=== PATIENT | male | born 1955 | race Two or more races ===

== ENCOUNTER 2020-02-01 15:48 | Outpatient (CLI) | payer MEDICARE | END 2020-02-01 23:59 | disposition home or self-care (01) | LOC: MSC 15:48 | PROVIDERS: ATTEND Internal Medicine | DX: F41.9 Anxiety disorder, unspecified (principal); R73.03 Prediabetes; I10 Essential (primary) hypertension; R05 Cough; B00.9 Herpesviral infection, unspecified; Z79.84 Long term (current) use of oral hypoglycemic drugs; Z79.899 Other long term (current) drug therapy ==